=== PATIENT | male | born 1965 | race Caucasian/White ===

== ENCOUNTER 2016-08-22 13:42 | Emergency (ER) | payer SELFPAY ==
[~2016-08-22] VITALS: Ht 182.9 cm; Wt 90.7 kg
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
[2016-08-22] MEDS ORDERED: TDAP [DIPH/PERTUSSIS/TET] 0.5 ML VIAL IM ONE ×2 (13:55→14:00)
[2016-08-22] MEDS ORDERED: LIDOCAINE /MPF 1% VIAL 5 ML VIAL TP ONE (14:00)
--- NOTE | 2016-08-22 14:25 | NUR ---
DANNY ADRIAN AT BEDSIDE FOR EVAL.
--- NOTE | 2016-08-22 14:38 | NUR ---
LAC REPAIR DONE. TOLERATED PROCEDURE WELL. 6 STITCHES NOTED.
[2016-08-22 14:53] VITALS: BP 130/80
--- NOTE | 2016-08-22 14:53 | NUR ---
Patient discharged to home in stable condition. Written and verbal after care instructions given. Patient verbalizes understanding of instruction.
== END 2016-08-22 14:55 | disposition home or self-care (01) ==
LOC: ER 13:44
DX: S01.81XA Laceration without foreign body of other part of head, initial encounter (principal); I10 Essential (primary) hypertension; Z23 Encounter for immunization; F17.200 Nicotine dependence, unspecified, uncomplicated; W01.0XXA Fall on same level from slipping, tripping and stumbling without subsequent striking against object, initial encounter; Y92.89 Other specified places as the place of occurrence of the external cause; Y93.89 Activity, other specified; Y99.8 Other external cause status
CPT/HCPCS: 12014; 90471; 90715; 99284; A4606; A6402 ×2; J3490; Z7610